=== PATIENT | female | born 1965 | race Caucasian/White ===

== ENCOUNTER 2017-05-11 07:30 | Emergency (ER) | payer OTHER ==
[~2017-05-11] VITALS: Ht 165.1 cm; Wt 63.5 kg
[~2017-05-11 07:30] MED LIST: NORCO 5-325 TA1 EACH PO; PERCOCET 5-3251 EACH PO
[2017-05-11] MEDS ORDERED: XANAX0.5 MG PO (09:11)
--- NOTE | 2017-05-11 20:49 | EKG ---
[facility] [address] [place] [address] Signed Sinus bradycardia Otherwise normal ECG No previous ECGs available Confirmed by AGNIESZKA WILSON MD ([id number]) on 05/11/2017 8:49:18 PM Electronically Signed By: AGNIESZKA WILSON MD 05/11/17 2049 PATIENT NAME: ONEAL LUGO Electrocardiogram DATE OF : 63 PHYSICIAN: AGNIESZKA WILSON MD REPORT #: [id number] REPORT IS CONFIDENTIAL AND NOT TO BE RELEASED WITHOUT AUTHORIZATION
== END 2017-05-11 09:23 | disposition home or self-care (01) ==
LOC: ED 07:30
DX: F41.9 Anxiety disorder, unspecified (principal); R10.13 Epigastric pain; R11.2 Nausea with vomiting, unspecified; Z88.2 Allergy status to sulfonamides
CPT/HCPCS: 80053; 81001; 82150; 83690; 84484; 85025; 93005; 93010; 96374; 96375; 99283; J1170; J2060; J2405; J7030

== ENCOUNTER 2017-07-12 13:04 | Emergency (ER) | payer OTHER ==
[~2017-07-12] VITALS: Ht 165.1 cm; Wt 63.5 kg
[~2017-07-12 13:04] MED LIST changes: +XANAX0.5 MG PO
[2017-07-12] MEDS ORDERED: ACYCLOVIR400 MG PO (14:50)
[2017-07-12] MEDS ORDERED: VENTOLIN HFA18 GM INH (14:50)
[2017-07-12] MEDS ORDERED: FUROSEMIDE20 MG PO (14:50)
== END 2017-07-12 14:56 | disposition home or self-care (01) ==
LOC: ED 13:04
DX: Z00.8 Encounter for other general examination (principal)

== ENCOUNTER 2017-12-11 12:24 | Emergency (ER) | payer OTHER ==
[~2017-12-11] VITALS: Ht 165.1 cm; Wt 63.5 kg
--- OUTSIDE RECORDS SUMMARY | ~2017-12-11 | XMS | Clinical Summary ---
Demographics + + + | Address | [address] | | | [place] [address] | + + + | Home Phone | | + + + | Preferred Language | Unknown | + + + | Marital Status | Unknown | + + + | Taoism Affiliation | Unknown | + + + | Race | Unknown | + + + | Ethnic Group | Unknown | + + + Author + + + | Author | Leah Pepperdata | + + + | Organization | [facility] [employer] | + + + | Address | Unknown | + + + | Phone | Unavailable | + + + Support + + +---------+ + | Name | Relationship | Address | Phone | + + +---------+ + | Sammy Butler | ECON | Unknown | | + + +---------+ + Care Team Providers + +------+ + | Care Geothermal Powerplant Mechanic Name | Role | Phone | + [...] | | | | | (#1) | 8 | | | + + + + [...] + +--------+ +------+-------+ + | MEDICAID | [place] | [id number] | | | [address] | | | N | | | | [place] | | | [place] | | | | [phone] | | | [place] | | | | | + +--------+ [...] | Self | [birth year] | Home: | [address] | | | al/Fam | | 1966 | +- | [place] | | | [place] | | | [phone] | [phone] | + +--------+ +--------+ + + | NICA AZAR | Third | Self | [birth year] | Home: | [address] | | | Republican | | 1966 | +- | [place] | | | [place] | | | [phone] | [phone] | | | ity | | | | | + +--------+ +--------+ + +"
--- OUTSIDE RECORDS SUMMARY | ~2017-12-11 | XMS | Clinical Summary ---
Demographics + + + | Address | [address] | | | [place] [address] | + + + | Home Phone | | + + + | Preferred Language | Unknown | + + + | Marital Status | Unknown | + + + | Christian Affiliation | Unknown | + + + | Race | Unknown | + + + | Ethnic Group | Unknown | + + + Author + + + | Author | Leah [employer] | + + + | Organization | [facility] [employer] | + + + | Address | Unknown | + + + | Phone | Unavailable | + + + Support + + +---------+ + | Name | Relationship | Address | Phone | + + +---------+ + | Sammy Butler | ECON | Unknown | | + + +---------+ + Care Team Providers + +------+ + | Care Market Research Assistant Name | Role | Phone | + [...] +------+-------+ + | MEDICAID | [place] | [id number] | | | [address] | | | N | | | | [place] | | | [place] | | | | [phone] | | | 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
[~2017-12-11 12:24] MED LIST changes: +ACYCLOVIR400 MG PO; +FUROSEMIDE20 MG PO; +VENTOLIN HFA18 GM INH
[2017-12-11] MEDS ORDERED: HYDROCODON-ACE1 EAC8 PO (12:32)
[2017-12-11] MEDS ORDERED: AUGMENTIN 500-1 EACH PO (14:49)
== END 2017-12-11 15:10 | disposition home or self-care (01) ==
LOC: ED 12:24
DX: S50.812A Abrasion of left forearm, initial encounter (principal); L08.9 Local infection of the skin and subcutaneous tissue, unspecified; W55.03XA Scratched by cat, initial encounter; Z88.2 Allergy status to sulfonamides; Z79.899 Other long term (current) drug therapy
CPT/HCPCS: 99282

== ENCOUNTER 2018-05-06 12:06 | Emergency (ER) | payer OTHER ==
[~2018-05-06] VITALS: Ht 165.1 cm; Wt 63.5 kg
[~2018-05-06 12:06] MED LIST changes: +AUGMENTIN 500-1 EACH PO; +HYDROCODON-ACE1 EAC8 PO
--- OUTSIDE RECORDS SUMMARY | 2018-05-06 12:10 | XMS ---
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 Jean has no Care Guidelines for this patient. Leeanna VISIT COUNT (12 MO.) 4 KATLIN Mathews TOTAL 4 NOTE: Visits indicate total known visits. ED/UCC VISIT TRACKING (12 MO.) 05/06/2018 12:06 [facility] [place] TYPE: Emergency COMPLAINT: - R LEG PAIN/WOUND CHECK 12/11/2017 12:24 [facility] [place] TYPE: Emergency COMPLAINT: - SKIN PROBLEM DIAGNOSES: - Allergy status to sulfonamides status - Local infection of the skin and subcutaneous tissue, unspecified - Other senior care (current) drug therapy - Abrasion of left forearm, initial encounter - Scratched by cat, initial encounter - Abrasion of left forearm, initial encounter 07/12/2017 13:05 [facility] [place] TYPE: Emergency COMPLAINT: - R KNEE PAIN/INJURY/MSE TO CLINIC DIAGNOSES: - Encounter for other general examination 05/11/2017 07:30 [facility] [place] TYPE: Emergency COMPLAINT: - UPPER ABD PAIN DIAGNOSES: - Epigastric pain - Anxiety disorder, unspecified - Nausea with vomiting, unspecified - Allergy status to sulfonamides status INPATIENT VISIT TRACKING (12 MO.) No inpatient visits to display in this time frame [id number]
[2018-05-06] MEDS ORDERED: CLEOCIN HCL300 MG PO (12:53)
[2018-05-06] MEDS ORDERED: ONDANSETRON ODT8 MG PO (12:53)
== END 2018-05-06 13:10 | disposition home or self-care (01) ==
LOC: ED 12:06
DX: L03.115 Cellulitis of right lower limb (principal); Z90.49 Acquired absence of other specified parts of digestive tract; Z88.2 Allergy status to sulfonamides
CPT/HCPCS: 99282

== ENCOUNTER 2019-01-03 11:38 | Emergency (ER) | payer OTHER ==
[~2019-01-03] VITALS: Ht 162.6 cm; Wt 59.0 kg
--- OUTSIDE RECORDS SUMMARY | ~2019-01-03 | XMS | Clinical Summary ---
Demographics + + + | Address | [address] | | | [place] [address] | + + + | Home Phone | | + + + | Preferred Language | Unknown | + + + | Marital Status | Unknown | + + + | Catholic Affiliation | Unknown | + + + | Race | Unknown | + + + | Ethnic Group | Unknown | + + + Author + + + | Author | [employer] (Historical as of | | | 10-22-18) | + + + | Organization | [facility] (Historical as of | | | 10-22-18) | + + + | Address | Unknown | + + + | Phone | Unavailable | + + + Support + + +---------+ + | Name | Relationship | Address | Phone | + + +---------+ + | Sammy Butler | ECON | Unknown | | + + +---------+ + Care Team Providers + +------+ + | Care Campus Dean Name | Role | Phone | + +------+ + | Abdullahi Ghosh MD | PP | | + +------+ + Allergies Not on File Current Medications Not on file Active Problems Not on file Social History + +-------+ +--------+------+ | Tobacco Use | Types | Packs/Day | Years | Date | | | | | Used | | + +-------+ +--------+------+ | Never Assessed | | | | | + +-------+ +--------+------+ + + + | Sex Assigned at | Date Recorded | | | | + + + | Not on file | | + + + Last Filed Vital Signs + + + + | Vital Sign | Reading | Time Taken | + + + + | Blood Pressure | - | - | + + + + | Pulse | - | - | + + + + | Temperature | - | - | + + + + | Respiratory Rate | - | - | + + + + | Oxygen Saturation | - | - | + + + + | Inhaled Oxygen | - | - | | Concentration | | | + + + + | Weight | 58.5 kg (129 lb) | 10/04/2013 9:53 AM PDT | + + + + | Height | - | - | + + + + | Body Mass Index | - | - | + + + + Plan of Treatment + + + + + | Health Maintenance | Due Date | Last Done | Comments | + + + + + | Vaccine: | | | | | Dtap/Tdap/Td (1 - | 4 | | | | Tdap) | | | | + + + + + | Cervical Cancer | | | | | Screening (Pap) | 5 | | | + + + + + | Vaccine: Zoster (1 | | | | | of 2) | 5 | | | + + + + + | Vaccine: Influenza | | | | | (#1) | 9 | | | + + + + + Results Not on filefrom Last 3 Months Insurance + +--------+ +------+-------+ + | Payer | Benefi | Subscriber | Type | Phone | Address | | | t Plan | ID | | | | | | / | | | | | | | Group | | | | | + +--------+ +------+-------+ + | MEDICAID | [place] | [id number] | | | [address] | | | N | | | | [place], [place] | | | [place] | | | | [phone] | | | NUTRITIONAL ASSISTANT | | | | | + +--------+ +------+-------+ + + +--------+ +--------+ + + | Guarantor Name | Accoun | Relation to | Date | Phone | Billing Address | | | t Type | Patient | of | | | | | | | | | | + +--------+ +--------+ + + | NICA AZAR | Person | Self | [birth year] | Home: | [address] | | | al/Fam | | 1966 | [phone] | [place] | | | [place] | | | [phone] | [phone] | + +--------+ +--------+ + + | NICA AZAR | Third | Self | [birth year] | Home: | [address] | | | [place] | | 1966 | [phone] | [place] | | | [place] | | | [phone] | [phone] | | | itaakash | | | | | + +--------+ +--------+ + +"
--- OUTSIDE RECORDS SUMMARY | ~2019-01-03 | XMS | Clinical Summary ---
Demographics + + + | Address | [address] | | | [place] [address] | + + + | Home Phone | | + + + | Preferred Language | Unknown | + + + | Marital Status | Unknown | + + + | Religion Affiliation | Unknown | + + + | Race | Unknown | + + + | Ethnic Group | Unknown | + + + Author + + + | Author | [employer] (Historical as of | | | 10-22-18) | + + + | Organization | 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
[~2019-01-03 11:38] MED LIST changes: +B COMPLEX1 EACH PO; +CLEOCIN HCL300 MG PO; +ONDANSETRON ODT8 MG PO; +OXYCODONE HCL10 MG PO; +VITAMIN C500 M4 PO
--- OUTSIDE RECORDS SUMMARY | 2019-01-03 11:42 | XMS ---
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 Leeanna VISIT COUNT (12 MO.) 2 KATLIN Mathews TOTAL 2 NOTE: Visits indicate total known visits. ED/UCC VISIT TRACKING (12 MO.) 01/03/2019 11:39 [facility] [place] TYPE: Emergency COMPLAINT: - SPIDER BITE 05/06/2018 12:06 [facility] [place] TYPE: Emergency COMPLAINT: - R LEG PAIN/WOUND CHECK DIAGNOSES: - Allergy status to sulfonamides status - Cellulitis of right lower limb - Acquired absence of other specified parts of digestive tract - Other specified soft tissue disorders INPATIENT VISIT TRACKING (12 MO.) No inpatient visits to display in this time frame [email or web address]
[2019-01-03] MEDS ORDERED: DOXYCYCLINE HY100 MG PO (12:25)
== END 2019-01-03 12:32 | disposition home or self-care (01) ==
LOC: ED 11:38
DX: L03.221 Cellulitis of neck (principal); Z88.2 Allergy status to sulfonamides; Z79.899 Other long term (current) drug therapy
CPT/HCPCS: 99282

== ENCOUNTER 2019-07-03 08:03 | Emergency (ER) | payer OTHER ==
[~2019-07-03] VITALS: Ht 162.6 cm; Wt 68.0 kg
--- OUTSIDE RECORDS SUMMARY | ~2019-07-03 | XMS | Clinical Summary ---
Demographics + + + | Address | [address] | | | [place] [address] | + + + | Home Phone | | + + + | Preferred Language | Unknown | + + + | Marital Status | Unknown | + + + | Baptist Affiliation | Unknown | + + + | Race | Unknown | + + + | Ethnic Group | Unknown | + + + Author + + + | Author | [employer] (Historical as of | | | 10-22-18) | + + + | Organization | [facility] [employer] (Historical as of | | | 10-22-18) [...] Team Providers + +------+ + | Care Regional Education Manager Name | Role | Phone | + [...] Vaccine: Influenza | | | | | (Season Ended) | 0 | | | + + + + [...] +------+-------+ + | MEDICAID | [place] | [id number] | | | [address] | | | N | | | | [place], [place] | | | [place] | | | | [address] | | | CLOUD CONSULTANT | | | | | + +--------+ [...] | Self | [birth year] | Home: | [address] | | | al/Fam | | 1966 | [phone] | [place] | | | [place] | | | [phone] | [phone] | + +--------+ +--------+ + + | NICA AZAR | Third | Self | [birth year] | Home: | [address] | | | [place] | | 1966 | [phone] | [place] | | | [place] | | | [phone] | [phone] | | | it[place]akash | | | | | + +--------+ +--------+ + +"
--- OUTSIDE RECORDS SUMMARY | ~2019-07-03 | XMS | Clinical Summary ---
Demographics + + + | Address | [address] | | | [place] [address] | + + + | Home Phone | | + + + | Preferred Language | Unknown | + + + | Marital Status | Unknown | + + + | Congregation Affiliation | Unknown | + + + | Race | Unknown | + + + | Ethnic Group | Unknown | + + + Author + + + | Author | [employer] (Historical as of | | | 10-22-18) | + + + | Organization | [facility] [employer] (Historical as of | | | 10-22-18) [...] Team Providers + +------+ + | Care Multifocal Lens Assembler Name | Role | Phone | + [...] +------+-------+ + | MEDICAID | [place] | [id number] | | | [address] | | | N | | | | [place], [place] | | | [place] | | | | [phone] | | | REGULATORY AFFAIRS COORDINATOR | | | | | + +--------+ [...] | Self | [birth year] | Home: | [address] | | | al/Fam | | 1966 | [phone] | [place] | | | [place] | | | [phone] | [phone] | + +--------+ +--------+ + + | NICA AZAR | Third | Self | [birth year] | Home: | [address] | | | Republican | | 1966 | [phone] | [place] | | | [place] | | | [phone] | [phone] | | | itaakash | | | | | + +--------+ +--------+ + +"
[~2019-07-03 08:03] MED LIST changes: +DOXYCYCLINE HY100 MG PO
--- OUTSIDE RECORDS SUMMARY | 2019-07-03 08:06 | XMS ---
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 Leeanna VISIT COUNT (12 MO.) 2 KATLIN Mathews TOTAL 2 NOTE: Visits indicate total known visits. ED/UCC VISIT TRACKING (12 MO.) 07/03/2019 08:03 [facility] [place] TYPE: Emergency COMPLAINT: - EAR PAIN 01/03/2019 11:39 [facility] [place] TYPE: Emergency COMPLAINT: - SPIDER BITE DIAGNOSES: - Allergy status to sulfonamides status - Other ch[facility] (current) drug therapy - Cellulitis of neck INPATIENT VISIT TRACKING (12 MO.) No inpatient visits to display in this time frame [id number]
== END 2019-07-03 08:16 | disposition home or self-care (01) ==
LOC: ED 08:03
DX: H92.02 Otalgia, left ear (principal)